=== PATIENT | male | born 1980 | race Caucasian/White ===

== ENCOUNTER 2017-06-23 16:50 | Emergency (ER) | payer OTHER ==
[~2017-06-23] VITALS: Wt 0.5 kg
[~2017-06-23 16:50] MED LIST: BACTRIM DS TAB1 EACH PO; BACTROBAN15 GM TP; ERYTHROMYCIN E3.5 G1 OP; NOHOMEMEDICATIONS; ULTRAM 50MG TAB50 MG PO
== END 2017-06-23 17:37 | disposition short-term general hospital (02) ==
LOC: ER 16:50
DX: H57.12 Ocular pain, left eye (principal)